=== PATIENT | female | born 1985 ===

== ENCOUNTER 2018-01-16 11:00 | Inpatient (IN) | payer OTHER ==
[~2018-01-16] VITALS: Ht 165.1 cm; Wt 3.2 kg
[2018-01-26] MEDS ORDERED: PRENATAL TABLE1 EAC1 PO (07:23)
[2018-01-28] MEDS ORDERED: MIRALAX17 GM PO (09:13)
[2018-01-28] MEDS ORDERED: ULTRAM50 MG PO (09:13)
== END 2018-01-28 12:01 | disposition home or self-care (01) | DRG 766 ==
LOC: O/R 01-26 06:23 → OB/GYN 01-26 06:23
PROVIDERS: Obstetrics & Gynecology
PROC: 0UT70ZZ Resection of Bilateral Fallopian Tubes, Open Approach (ICD-10-PCS; 2018-01-26)
PROC: 4A1HXCZ Monitoring of Products of Conception, Cardiac Rate, External Approach (ICD-10-PCS; 2018-01-26)
PROC: 4A033R1 Measurement of Arterial Saturation, Peripheral, Percutaneous Approach (ICD-10-PCS; 2018-01-26)
PROC: 10D00Z1 Extraction of Products of Conception, Low, Open Approach (ICD-10-PCS; principal; 2018-01-26 20:45)
DX: O34.211 Maternal care for low transverse scar from previous cesarean delivery (principal); Z3A.38 38 weeks gestation of pregnancy; Z37.0 Single live birth; Z30.2 Encounter for sterilization; Z64.1 Problems related to multiparity